=== PATIENT | male | born 1945 | race Caucasian/White ===

== ENCOUNTER → 2017-03-08 | Outpatient (CLI) | payer OTHER | END | disposition home or self-care (01) | LOC: RES 09:37 | DX: R06.00 Dyspnea, unspecified (principal) | CPT/HCPCS: 94060; 94726; 94729 ==

== ENCOUNTER 2017-07-20 08:22 | Emergency (ER) | payer OTHER ==
[~2017-07-20] VITALS: Ht 177.8 cm; Wt 93.6 kg
[2017-07-20 09:34] LABS: BASE EXCESS 4.6 mEq/L (-3 to +3); BICARBONATE 29.2 mEq/L (22-26); CARBOXY HGB 2.7 % (0-5); COMMENTS - BLOOD GASES A+C+; FI02 0.21 %; METHEMOGLOBIN 1.2 % (0-1.5); PCO2 42 mm Hg (35-45); PO2 56 mm Hg (80-100); SITE LR; TOTAL RESP RATE 15 resp/min; pH 7.45 (7.35-7.45)
[2017-07-20 09:36] LABS: BASOPHIL COUNT 0.1 K/uL (0-0.1); EOSINOPHIL (%) 0.4 % (0-5); EOSINOPHIL COUNT 0.1 K/uL (0-0.3); HEMATOCRIT 44.5 % (38.0-50.0); IMMATURE GRANULOCYTE (%) 0.3 % (0.0-0.7); IMMATURE GRANULOCYTE COUNT 0.1 K/uL; INSTRUMENT ABS NEUTROPHIL CT 11.9 K/uL; LYMPHOCYTE COUNT 1.8 K/uL (1.0-2.8); MCH 33.8 PG (29.0-34.0); MCHC 34.8 G/DL (30.0-36.0); MCV 97.2 FL (86-99); MEAN PLAT.VOLUME 12.1 uM^3 (9.0-12.4); MONOCYTE (%) 7.1 % (3-12); MONOCYTE COUNT 1.1 K/uL (0-0.8); NEUTROPHIL (%) 79.5 % (45-76); NEUTROPHIL COUNT 11.9 K/uL (1.8-6.4); PLATELET COUNT 194 K/uL (156-360); RED BLOOD COUNT 4.58 M/uL (4.00-5.50)
[2017-07-20 09:46] LABS: CHLORIDE 104 mEq/L (99-109); POTASSIUM 4.2 mEq/L (3.7-5.4); SODIUM 142 mEq/L (136-147)
[2017-07-20 09:48] LABS: GLUCOSE 119 mg/dL (70-99)
[2017-07-20 09:49] LABS: ANION GAP 10 MEQ/L (2-14)
[2017-07-20 09:52] LABS: GFR ESTIMATE (CALCULATED) > 59 mL/min/ (58.99-99999)
[2017-07-20 09:53] LABS: UREA NITROGEN (BUN) 27 mg/dL (9-23)
[2017-07-20 09:58] LABS: TROP-I INTERPRETATION NEGATIVE; TROPONIN-I 0.05 ng/mL (0.0-0.30)
[2017-07-20] MEDS ORDERED: PREDNISONE20 MG PO (10:12)
[2017-07-20] MEDS ORDERED: DOXYCYCLINE HY100 MG PO (10:12)
[2017-07-20] MEDS ORDERED: PROVENTIL,2.5 MG/0.5 IH ×3 (10:12→11:25)
[2017-07-20] MEDS ORDERED: NEBULIZER MC (10:12)
[2017-07-20 11:45] VITALS: BP 132/98
== END 2017-07-20 11:49 | disposition home or self-care (01) ==
LOC: EME → EDBD 08:22 → EME 11:49
PROVIDERS: Emergency Medicine
DX: J44.1 Chronic obstructive pulmonary disease with (acute) exacerbation (principal); F17.200 Nicotine dependence, unspecified, uncomplicated
CPT/HCPCS: 36600; 71010; 80048; 82803; 84484; 85025; 93005; 94640 76; 99281; 99284; J2930; J7644